=== PATIENT | male | born 1960 | race Caucasian/White ===

== ENCOUNTER → 2019-07-02 | Outpatient (CLI) | payer OTHER, SELFPAY | END | disposition home or self-care (01) | LOC: BFHLAB 10:21 | PROVIDERS: Family Provider Family Medicine; PCP Family Medicine; Visit Provider Family Medicine | DX: Z00.01 Encounter for general adult medical examination with abnormal findings (principal); I25.10 Atherosclerotic heart disease of native coronary artery without angina pectoris; Z12.5 Encounter for screening for malignant neoplasm of prostate | CPT/HCPCS: 36415 ==

== ENCOUNTER → 2019-07-15 | Outpatient (CLI) | payer MEDICAID, SELFPAY ==
--- NOTE | 2019-07-15 08:05 | CT_ITS ---
STUDY: LOW DOSE CT LUNG CANCER SCREENING REASON FOR EXAM: Male, 58 years old. Current smoker. 40 pack-year history. Prior three-vessel CABG procedure. RADIATION DOSAGE (If Supplied By Facility): CTDIvol = ( 3.40 ) mGy, DLP = ( 114.86 ) mGycm TECHNIQUE: No contrast was administered. Low dose technique was utilized (average mAS-38 and kVp 120). 1.25 mm axial source images with a slice interval of 1.25-mm were reconstructed in lung windows. 2.5 mm axial source images with a slice interval of 2.5-mm were reconstructed in lung windows. 5.0 mm axial source images with a slice interval of 5.0-mm were reconstructed in soft tissue windows. Nodule measured using lung windows on PACS and/or independent workstation with automated measurement of minimum and maximum diameter. Nodule measurement reported as average diameter rounded to the nearest whole number. Growth is defined as an increase ins size of greater than 1.5 mm. COMPARISON: None. NODULES: Total lung nodules (excluding granulomas): 0 Emphysema: There are mild emphysematous changes of the lungs. There is linear scarring in the lingula and anterior right upper lobe. Endobronchial lesion: None Aorta: Normal Coronary arteries: There is evidence of prior CABG procedure. Heart: Normal Pulmonary artery: Normal Mediastinal nodes: None Other chest and abdominal findings: Mild degenerative changes of the thoracic spine. CT/Low Dose CT Lung Screening IMPRESSION: Lung-RADS category 1 - Continue annual screening with LDCT in 12 months. IMPORTANT NOTES FOR USE: ACR Lung-RADS Version 1.0 Assessment Categories Release Date: March 08, 2014 Category: Coded 0-4 bases on nodule(s) with highest degree of suspicion. Negative screen is defined as categories 1 and 2; a positive screen is defined as categories 3 and 4. Category 3 and 4A nodules that are unchanged on interval CT should be coded as category 2, and individuals returned to screening in 12 months. Category 4X: Category 3 or 4 nodules with additional imaging findings that increase the suspicion of lung cancer, such as spiculation, GGN that doubles in size in 1 year, enlarged lymph notes, etc. Category Modifiers: S (significant finding unrelated to lung cancer) and C (prior history of treated lung cancer) may be added to the 0-4 Lung-RADS Electronically Signed: Sergio Bravo DO at 16:49 EDT Tel [phone], Service support ,
== END | disposition home or self-care (01) ==
LOC: CT 08:01
PROVIDERS: Family Provider Family Medicine; PCP Family Medicine; Referring Provider Family Medicine; Visit Provider Family Medicine
DX: F17.200 Nicotine dependence, unspecified, uncomplicated (principal); Z12.2 Encounter for screening for malignant neoplasm of respiratory organs
CPT/HCPCS: G0297

== ENCOUNTER → 2023-07-09 | Outpatient (CLI) | payer MEDICARE, SELFPAY ==
[2023-07-09 12:16] LABS: Absolute Lymphocyte Count 1.37 X10^3/uL (0.83-4.51); Absolute Neutrophil Count 3.2 X10^3/uL (2.0-7.7); Basophil# 0.06 X10^3/uL; Basophil% 1.1 % (0-1); Eosinophils% 3.7 % (0-5); Hematocrit 48.8 % (40-54); Hemoglobin 15.8 g/dL (13.0-16.5); Lymphocyte # 1.37 X10^3/ul (0.83-4.51); Lymphocyte % 25.5 % (19-41); Mean Corp Hgb Conc 32.4 g/dL (32-36); Mean Corpuscular Hgb 30.7 pg (27.0-32.0); Mean Corpuscular Volume 94.9 fL (80-94); Mean Platelet Vol. 10.4 fl (6.2-12.0); Monocyte# 0.48 X10^3/uL; Monocyte% 8.9 % (0-10); NRBC Flagged by Analyzer 0 % (0-5); Neutrophil # 3.24 X10^3/uL (2.7-7.7); Neutrophil % 60.4 % (47-70); Platelet Count 285 K/mm3 (150-450); RBC Distribution Width CV 13.2 % (11.6-14.6); RBC Distribution Width SD 46.9 fl (35.1-43.9); Red Blood Count 5.14 M/mm3 (4.6-6.2); White Blood Count 5.4 K/mm3 (4.4-11.0)
[2023-07-09 12:24] LABS: AST(SGOT) 12 U/L (15-37); Alanine Aminotransfer ALT/SGPT 19 U/L (16-61); Albumin, Serum 3.7 g/dL (3.2-5.0); Alkaline Phosphatase 81 U/L (45-117); Anion Gap 3 (5-15); BUN 8 mg/dL (7-18); Calcium,Total 9.1 mg/dL (8.5-10.1); Chloride 107 mmol/L (98-107); Cholesterol 219 mg/dL (200); EST Glomerular Filtration Rate 80 mL/min (>60); Est Glom Filt Rate - Afr Amer 97 mL/min (>60); Globulin 3.6 g/dL (2.2-4.2); Glucose 107 mg/dL (74-106); High Density Lipoprotein 34 mg/dL; PSA,Total - Annual Screen 2.01 ng/mL (0.00-4.00); Potassium 4.3 mmol/L (3.5-5.1); Protein, Total 7.3 g/dL (6.4-8.2); Sodium Level 140 mmol/L (136-145); Triglycerides 204 mg/dL; Very Low Density Lipoprotein 41 mg/dL (5-40)
== END | disposition home or self-care (01) ==
LOC: BFHLAB 09:23
PROVIDERS: PCP Family Medicine; Referring Provider Family Medicine; Visit Provider Family Medicine
DX: Z00.00 Encounter for general adult medical examination without abnormal findings (principal); I25.10 Atherosclerotic heart disease of native coronary artery without angina pectoris; Z12.5 Encounter for screening for malignant neoplasm of prostate
CPT/HCPCS: 36415; 80053; 80061; 84153; 85025; G0103

== ENCOUNTER → 2023-07-29 | Outpatient (CLI) | payer MEDICARE, SELFPAY ==
--- NOTE | 2023-07-29 14:15 | CT_ITS ---
STUDY: LOW DOSE CT LUNG CANCER SCREENING REASON FOR EXAM: Male, 62 years old. NICOTINE DEP. The patient smoked 1 pack per day for 45 years. RADIATION DOSAGE (If Supplied By Facility): CTDIvol = ( 4.02 ) mGy, DLP = ( 142.95 ) mGycm TECHNIQUE: No contrast was administered. Low dose technique was utilized (average mAS-38 and kVp 120). 1.25 mm axial source images with a slice interval of 1.25-mm were reconstructed in lung windows. 2.5 mm axial source images with a slice interval of 2.5-mm were reconstructed in lung windows. 5.0 mm axial source images with a slice interval of 5.0-mm were reconstructed in soft tissue windows. COMPARISON: Comparison is made with prior study dated July 15, 2019. NODULES: No suspicious nodules are seen. Emphysema: Hyperinflation. Emphysematous changes worse in the upper lobes. Linear scarring in the anterior aspects of both the right and left upper lobes. This evidence of a mild atelectasis and bronchiectasis in the medial aspect of the right middle lobe as well as the medial aspect of the lingular segment of the left upper lobe. Endobronchial lesion: None Aorta: Minimal atherosclerotic plaque formation of the aortic arch. CORONARY ARTERIES: Coronary artery calcification is seen. Prior CABG. Heart: Unremarkable. Pulmonary artery: Unremarkable. Mediastinal nodes: Unremarkable. Other chest and abdominal findings: CT/Low Dose CT Lung Screening IMPRESSION: Lung-RADS category 2 - Continue annual screening with LDCT in 12 months. IMPORTANT NOTES FOR USE: ACR Lung-RADS Version 1.1 Assessment Categories Release Date: 2018 Category: Coded 0-4 bases on nodule(s) with highest degree of suspicion. Negative screen is defined as categories 1 and 2; a positive screen is defined as categories 3 and 4. Category 3 and 4A nodules that are unchanged on interval CT should be coded as category 2, and individuals returned to screening in 12 months. Category 4X: Category 3 or 4 nodules with additional imaging findings that increase the suspicion of lung cancer, such as spiculation, GGN that doubles in size in 1 year, enlarged lymph notes, etc. Category Modifiers: S (significant finding unrelated to lung cancer) Electronically Signed: Zach Phillips MD at 9:50 EDT ,
== END | disposition home or self-care (01) ==
LOC: CT 14:13
PROVIDERS: PCP Family Medicine; Referring Provider Family Medicine; Visit Provider Family Medicine
DX: Z12.2 Encounter for screening for malignant neoplasm of respiratory organs (principal); Z87.891 Personal history of nicotine dependence
CPT/HCPCS: 71271

== ENCOUNTER 2024-08-26 09:02 | Outpatient (CLI) | payer MEDICARE, SELFPAY ==
[2024-08-26 09:29] LABS: Absolute Lymphocyte Count 1.22 X10^3/uL (0.83-4.51); Absolute Neutrophil Count 3.7 X10^3/uL (2.0-7.7); Basophil# 0.07 X10^3/uL; Basophil% 1.2 % (0-1); Eosinophil# 0.15 X10^3/uL; Eosinophils% 2.6 % (0-5); Hemoglobin 16.5 g/dL (13.0-16.5); Lymphocyte # 1.22 X10^3/ul (0.83-4.51); Lymphocyte % 21.1 % (19-41); Mean Corp Hgb Conc 33.7 g/dL (32-36); Mean Platelet Vol. 10.2 fl (6.2-12.0); Monocyte# 0.62 X10^3/uL; Monocyte% 10.7 % (0-10); NRBC Flagged by Analyzer 0 % (0-5); Neutrophil # 3.68 X10^3/uL (2.7-7.7); Neutrophil % 63.9 % (47-70); Platelet Count 247 K/mm3 (150-450); RBC Distribution Width SD 45.9 fl (35.1-43.9); Red Blood Count 5.16 M/mm3 (4.6-6.2); White Blood Count 5.8 K/mm3 (4.4-11.0)
--- OUTSIDE RECORDS SUMMARY | 2024-08-26 09:43 | XMS RPT_ITS | CCD ---
Author Organization [facility] Care Team Providers Care Food Assembler [employer] Name Role Phone Dejah Cortesily Veronica Admitting Unavailable Dejah Cortesily Veronica Attending Unavailable No Doctor Assigned, Nodr Primary Care Unavail able LUIS FERNANDO BOYD Admitting Unavailable LUIS FERNANDO BOYD Attending Unavailable LUIS FERNANDO BOYD Primary Care Unavailable HAZEL GONZALES Consulting Unavailable HAZEL GONZALES Referring Unavailable PROVIDER, UNKNOWN Consulting Unavailable PROVIDER, UNKNOWN Consulting Unavailable FCO HAYS DO Admitting Unavailable FCO HAYS DO Attending Unavailable FCO HAYS DO Primary Care Unavailable HAZEL GONZALES Consulting Unavailable HAZEL GONZALES Referring Unavailable PROVIDER, UNKNOWN Consulting Unavailable PROVIDER, UNKNOWN Consulting Unavailable FCO HAYS DO Admitting Unavailable FCO HAYS DO Attending Unavailable FCO HAYS DO Primary Care Unavailable HAZEL GONZALES Consulting Unavailable PROVIDER, UNKNOWN Consulting Unavailable PROVIDER, UNKNOWN Consulting Unavailable ROYAL DO~[id number], ROYALLILO MCCARTHYNT J Attending Unavailable ROYAL DO~[id number], ROYAL BOB J Admitting Unavailable ANSELMO MACE~[id number], ANSELMO [place] Primary Ca re Unavailable HAZEL GONZALES MD Consulting Unavailable HAZEL GONZALES MD Consulting Unavailable ROYAL DO BOB J Consulting Unavailable ROYAL DO, BOB J Consulting Unavailable RAYMOND DO, CATHIE T Consulting Unavailable RAYMOND DO, CATHIE T Consulting Unavailable Allergies Allergy Classification Reported Allergen(s) Allergy Type Date of Onset Reaction(s) Facility (1 source) No Known Medication Allergies; Translations: [No Known Medication Allergies] Propensity to adverse reactions to drug (disorder) [facility] Repository (1 source) clorazepate Drug Allergy [facility] Repository (1 source) Chloramphenicol Drug Allergy [facility] Repository (1 source) Milk; Translations: [Milk] Food allergy (disorder) [facility] Repository (1 source) MISC-DRUG Drug allergy (disorder) [facility] Repository Problems Problem Classification Problem Date Documented Date Episodic/Chronic Other connective tissue disease (1 source) Radial styloid tenosynovitis [de Quervain]; Translations: [RADIAL STYLOID TENOSYNOVITIS] Onset: 04-03-2024 Episodic Other non-traumatic joint disorders (2 sources) Pain in left wrist; Translations: [PAIN IN LEFT WRIST] Onset: 04-01-2024 Episodic Results Test Name Value Interpretation Reference Range Facil ity HAND LEFT COMPLETEon 024 HAND LEFT COMPLETE EXAM: HAND LEFT COMPLETE, WRIST LEFT COMPLETE REASON FOR EXAM: Pain of left wrist COMPARISON: None TECHNIQUE: 3 views of the left hand and 3 views of the left wrist FINDINGS: Severe osteoarthrosis of the first carpometacarpal joint, moderate of the triscaphe articulation. Mild degenerative changes of the first interphalangeal and second through fifth distal interphalangeal joints. No fractures. No aggressive osseous lesions or bony demineralization. Mild dorsal wrist soft tissue swelling. IMPRESSION: No acute osseous abnormality. Degenerative changes throughout the left hand and wrist, most severe at the first carpometacarpal joint. Normal [facility] WRIST LEFT COMPLETEon 2023 WRIST LEFT COMPLETE EXAM: HAND LEFT COMPLETE, WRIST LEFT COMPLETE REASON FOR EXAM: Pain of left wrist COMPARISON: None TECHNIQUE: 3 views of the left hand and 3 views of the left wrist FINDINGS: Severe osteoarthrosis of the first carpometacarpal joint, moderate of the triscaphe articulation. Mild degenerative changes of the first interphalangeal and second through fifth distal interphalangeal joints. No fractures. No aggressive osseous lesions or bony demineralization. Mild dorsal wrist soft tissue swelling. IMPRESSION: No acute osseous abnormality. Degenerative changes throughout the left hand and wrist, most severe at the first carpometacarpal joint. Normal [facility] EMERGENCY REPORTon 9 EMERGENCY REPORT [facility] EMERGENCY ROOM REPORT NAME ACCOUNT SEX AGE ADMIT DISCHARGE PT MED. RECORD# NUMBER DATE DATE TYPE DOUGLAS [id number] M 58 10/11/19 10/11/19 3 MEG Minh [address] ROOM: ER DATE OF : 1960 DICTATING PHYSICIAN: Fco Hays ADDENDUM DIAGNOSTIC DATA: CT scan of the abdomen and pelvis did show the gallbladder to be grossly distended and contains dependent gallstones. There is a borderline prominent biliary tree, cannot exclude an occult choledocholithiasis. It could be further characterized with MRCP. There is scattered atelectasis/scarring at the lung bases and postoperative changes in the chest with sternotomy. There is a somewhat elevated right hemidiaphragm and a tortuous, mildly aneurysmal aorta measuring approximately 3.7 cm. There is a mild fatty lobulated liver, cannot exclude a cirrhotic morphology. No obstructive uropathy. There are renal cysts, some too small to characterize. There is mild urinary bladder wall thickening which could be related to under-distention. Appendix is visualized and appears unremarkable. No evidence of acute appendicitis. There is a moderate amount of gas and stool within the proximal to mid-colon. There is scattered mild bowel wall thickening, typically under-distention. No bowel obstruction or free air. Bloodwork showed a white count of 8, hemoglobin 15.7, hematocrit 46.8, and platelet count 257,000. Lipase was 17. Troponin was less than 0.01. Sodium was 137, potassium 3.6, chloride 103, CO2 of 26.5, BUN 14, creatinine 1, and glucose 119. AST was mildly elevated at 200, ALT mildly elevated at 117, alkaline phosphatase 88, and total bilirubin 1.3. Anion gap was 11. Urinalysis showed negative nitrites and negative leukocyte esterase; microscopic not indicated. EMERGENCY DEPARTMENT COURSE AND TREATMENT: I discussed the case with the patient. We decided to place him on Percocet and advised him to keep a bland diet and to follow up with Dr. Gaines in the office this coming week. I did ask him to call Dr. Gaines's office first thing Saturday to arrange follow-up. He was advised to stay away from fatty foods and spicy foods and stick with a bland diet. The patient was also placed on Flagyl 500 mg one p.o. t.i.d., dispense #30 with no refill, and Cipro 500 mg one p.o. b.i.d., dispense #20 with no refill. If the patient's symptoms become worse or any other problems develop, return here to the Emergency Department. DIAGNOSES: Page 1 of 2 MEG COLE Emergency Room Report MEG COLE : 1960 1. Cholelithiasis. 2. Abdominal pain. Dictated By: Fco Hays DO 10/11/19 03:16 JOB #: [id number] Transcribed By: marisela 10/12/19 06:44 Electronically signed by: E-Sign: Dr. Fco Hays D.O. 10/21/19 04:46 Page 2 of 2 MEG COLE Emergency Room Report Normal [facility] EMERGENCY REPORT [facility] EMERGENCY ROOM REPORT NAME ACCOUNT SEX AGE ADMIT DISCHARGE PT MED. RECORD# NUMBER DATE DATE TYPE DOUGLAS [id number] Driss 58 10/11/19 10/11/19 3 MEG Wilkinson [address] ROOM: ER DATE OF : 1960 DICTATING PHYSICIAN: Fco Hays ADDENDUM DIAGNOSTIC DATA: EKG was done at 0051 hours. It showed a normal sinus rhythm with some inverted T waves in V4 through V6 as well as I and aVL. His previous EKGs have shown similar findings. The patient did have a stress test by his compensator in his compensator's office this year, which was negative. Dictated By: Fco Hays DO 10/11/19 03:35 JOB #: [id number] Transcribed By: marisela 10/12/19 08:41 Electronically signed by: E-Sign: Dr. Fco Hays D.O. 10/21/19 04:46 Page 1 of 1 MEG COLE Emergency Room Report Normal [facility] EMERGENCY REPORT [facility] EMERGENCY ROOM REPORT NAME ACCOUNT SEX AGE ADMIT DISCHARGE PT MED. RECORD# NUMBER DATE DATE TYPE DOUGLAS [id number] Driss 58 10/11/19 10/11/19 3 MEG Wilkinson [address] ROOM: ER DATE OF : 1960 DICTATING PHYSICIAN: Fco Hays TIME SEEN: 0010 hours. HISTORY OF PRESENT ILLNESS: This is a 58-year-old white male complaining of epigastric region abdominal pain that started suddenly around 5 p.m. The pain was severe and doubled him over in pain. He took a Tums, which made him dry heave, but then the pain went away for awhile. He started to have some pain again a little bit later and took some Tums, but that really did not seem to help that time. The pain eventually started to go away and then the pain came back a third time, and it was really bad that time the patient states. He states he had a similar pain about a month ago, but it went away on its own and he never really saw anyone about it. The pain tonight just will not let up. He has complained of some shortness of breath when he is having this severe pain, although he states this does not feel like his cardiac pain. Dr. Gonzales is his primary care provider. PAST MEDICAL HISTORY: The patient has a past medical history of fibromyalgia, osteoarthritis, and coronary artery disease. PAST SURGICAL HISTORY: Past surgeries include a previous coronary artery bypass graft surgery in 2004. He has also had right knee surgery twice. ALLERGIES: He is allergic to Chloromycetin. SOCIAL HISTORY: He is a smoker of one pack per day. He denies any use of alcohol or illicit drugs. He lives with family. REVIEW OF SYSTEMS: He denies any chest pain. He does admit to some intermittent shortness of breath. He denies any cough, sputum, or wheezing. He does complain of epigastric abdominal pain with some associated nausea and vomiting. He denies any diarrhea, constipation, melena, or hematochezia. He denies any headache, numbness, unsteady gait, weakness, neck or back pain, joint pain, skin rash or swelling, hives, hay fever or swollen glands. Further review of systems is negative. PHYSICAL EXAMINATION: Vital signs: Blood pressure is 114/86, pulse 85, respirations 17, temperature 98.2, pulse oximetry 93%, and weight 245 pounds. Presently, the patient is alert and oriented x3. He appears in some mild distress secondary to epigastric abdominal pain, but he is pleasant and cooperative. HEENT: Page 1 of 2 MEG COLE Emergency Room Report MEG COLE : 1960 Head appears atraumatic. Pupils are equal and reactive to light. Red reflexes are intact bilaterally. Extraocular muscles are intact. No conjunctival injection. No scleral icterus or lid edema. Ears: TMs are intact bilaterally. No erythema noted. No external auditory canal edema or bleeding. Nose exhibits no rhinorrhea or epistaxis. Mouth: Mucous membranes are moist. No pharyngeal erythema. Uvula is midline and elevates. Neck is supple. Trachea is midline. No JVD or lymphadenopathy. No posterior cervical tenderness. No nuchal rigidity. Lungs are clear to auscultation bilaterally. No adventitious sounds are noted. No accessory muscle use is noted. CV: Heart rate and rhythm are regular without murmur. Abdomen is soft with some mild epigastric tenderness on palpation. Bowel sounds are present x4 quadrants and normoactive. No guarding or rigidity. No rebound. No palpable abdominal masses. No hepatosplenomegaly. Back exhibits no midline or paraspinal region tenderness. No increased paraspinal muscle rigidity. Negative Rodney's sign. Extremities: No edema or cyanosis. Peripheral pulses are intact. No motor or sensory deficits are noted. Hand cone marker are strong and symmetric. Skin is warm and dry. No diaphoresis or rash. EMERGENCY DEPARTMENT COURSE AND TREATMENT: Presently, we will get a CT scan of the abdomen/pelvis along with some screening bloodwork. We will do an EKG and a troponin as well and get a urinalysis and then reevaluate. Dictated By: Fco Hays DO 10/11/19 00:36 JOB #: [id number] Transcribed By: marisela 10/12/19 06:08 Electronically signed by: E-Sign: Dr. Fco Hays D.O. 10/21/19 04:46 Page 2 of 2 DOUGLASMEG Emergency Room Report Normal [facility] EMERGENCY REPORT [facility] EMERGENCY ROOM REPORT NAME ACCOUNT SEX AGE ADMIT DISCHARGE PT MED. RECORD# NUMBER DATE DATE TYPE DOUGLAS [id number] M 58 10/11/19 10/11/19 3 MEG Wilkinson [address] ROOM: ER DATE OF : 1960 DICTATING PHYSICIAN: Fco Hays ADDENDUM EMERGENCY DEPARTMENT COURSE AND TREATMENT: I did discuss the case with Dr. Gaines from the General Surgery service. He recommended placing the patient on something for pain and to have him follow up in the office this coming week. He did ask for the patient to call his office first thing Saturday morning to arrange this. I did recommend a bland diet. I also felt if he was rather tender it would be a good idea to start him on antibiotics. He would also like the patient to have an outpatient gallbladder ultrasound, so I have ordered that. I placed the patient on Cipro 500 mg one p.o. b.i.d., dispense #20 with no refill, and Flagyl 500 mg one p.o. every 8 hours, dispense #30 with no refill. I discussed with the patient to call the office on Saturday to arrange follow-up in the office with Dr. Gaines this week and to get the gallbladder ultrasound done as an outpatient as scheduled. If his symptoms become worse, return here to the Emergency Department. Dictated By: Fco Hays DO 10/11/19 03:34 JOB #: [id number] Transcribed By: marisela 10/12/19 07:04 Electronically signed by: E-Sign: Dr. Fco Hays D.O. 10/21/19 04:46 Page 1 of 1 MEG COLE Emergency Room Report Normal [facility] CBC + DIFFon 10-11-2019 BANDS 1 % Normal 0 - 5 [facility] Comment on above: Performed By: #### 2 57719 #### [address] [address] CELL COUNT [address] [facility] Comment on above: Performed By: #### 2 93575 #### [facility],[address] [place] [address] 13404 EO 1.0 % Normal 0.0 - 4.0 [facility] Comment on above: Performed By: #### 2 64335 #### [facility],[address] [place] [address] 95196 MONOS 7 % Normal 0 - 8 [facility] Comment on above: Performed By: #### 2 86662 #### [facility],[address] [place] [address]776 SEGS 73 % High 50 - 70 [facility] Comment on above: Performed By: #### 2 44688 #### [address] [address] Basophils/100 WBC (Bld) 1.0 % Normal 0.0 - 2.0 [facility] Comment on above: Performed By: #### 2 38543 #### [facility],[address] [place] [address] CBC + DIFF Normal [facility] Comment on above: Result Comment: CBC- COMPLETE BLOOD COUNT Performed By: #### 2 51705 #### [facility],[address] [place] [address] Erythrocyte distribution width (RBC) [Ratio] 13.8 % Normal 12.0 - 15.6 [facility] Comment on above: Performed By: #### 2 33456 #### [facility],[address] [place] [address] Hematocrit (Bld) [Volume fraction] 46.8 % Normal 40.0 - 52.0 [facility] Comment on above: Performed By: #### 2 82135 #### [facility],[address] [place] [address] Hemoglobin (Bld) [Mass/Vol] 15.7 g/dL Normal 13.0 - 17.5 [facility] Comment on above: Performed By: #### 2 81643 #### [facility],[address] [place] [address] Lymphocytes/100 WBC (Bld) 17 % Low 20 - 40 [facility] Comment on above: Performed By: #### 2 96655 #### [facility],[address] [place] [address] MANUAL DIFF SEE BELOW Normal [facility] Comment on above: Performed By: #### 2 84807 #### [facility],[address] [place], [place] [id number] MCH (RBC) [Entitic mass] 32 pg Normal 27 - 33 [facility] Comment on above: Performed By: #### 2 01742 #### [facility],[address] [place], [place] [id number] MCHC (RBC) [Mass/Vol] 34 X10 3 Normal 32 - 36 [facility] Comment on above: Performed By: #### 2 57167 #### [facility],[address] [place] [address]383 MCV (RBC) [Entitic vol] 95 fL Normal 81 - 98 [facility] Comment on above: Performed By: #### 2 60094 #### [facility],[address] [place] [address] 94179 Morphology Kota (Bld) [Interp] REVIEWED Normal [facility] Comment on above: Performed By: #### 2 51605 #### [facility],[address] [place] [address] 60616 Platelet mean volume (Bld) [Entitic vol] 9.1 fL Normal 6.4 - 10.5 [facility] Comment on above: Result Comment: AUTO MATED DIFFERENTIAL Performed By: #### 2 27676 #### [address] [address] Platelets (Bld) [#/Vol] 257 x10EE3/UL Normal 150 - 450 [facility] Comment on above: Performed By: #### 2 96164 #### [facility],[address] [place] [address] 83155 RBC (Bld) [#/Vol] 4.94 x 10EE6/UL Normal 4.50 - 6.00 [facility] Comment on above: Performed By: #### 2 18239 #### [facility],[address] [place] [address] 15782 WBC (Bld) [#/Vol] 8.0 x 10EE3/UL Normal 4.5 - 10.8 [facility] Comment on above: Performed By: #### 2 68835 #### [facility],[address] [place] [address] 23914 CMP with eGFRon 10-11-2019 Age - Reported 58 years Normal [facility] Comment on above: Performed By: #### 2 24342 #### [facility],[address] [place] [address] 58033 Albumin [Mass/Vol] 4.6 g/dL Normal 3.4 - 4.[address] [facility] Comment on above: Performed By: #### 2 28055 #### [facility],[address] [place] [address] 63955 Albumin/Globulin [Mass ratio] 1.6 {ratio} Normal 0.9 - 1.6 [facility] Comment on above: Performed By: #### 2 38099 #### [facility],[address] [place] [address] 99161 ALK PHOS 88 U/L Normal 38 - 126 [facility] Comment on above: Performed By: #### 2 87880 #### [facility],[address] [place] [address] 75913 ALT/SGPT 117 U/L High 10 - 40 [facility] Comment on above: Performed By: #### 2 77960 #### [facility],[address] [place] [address] 76861 Anion gap [Moles/Vol] 11 mmol/L Normal 10 - 20 [facility] Comment on above: Performed By: #### 2 89874 #### [facility],[address] [place] [address] 86857 AST/SGOT 200 U/L High 13 - 39 [facility] Comment on above: Performed By: #### 2 95158 #### [facility],[address] [place] [address] 47703 B/C RATIO 14 ratio Normal 0 - 30 [facility] Comment on above: Performed By: #### 2 63166 #### [facility],[address] [place] [address] 96128 Bilirubin [Mass/Vol] 1.3 mg/dL Normal 0.0 - 1.5 [facility] Comment on above: Performed By: #### 2 00819 #### [facility],[address] [place] [address] 90950 Calcium [Mass/Vol] 10.4 mg/dL High 8.6 - 10.[address] [facility] Comment on above: Performed By: #### 2 14829 #### [facility],[address] [place] [address] 87536 Chloride [Moles/Vol] 103 mmol/L Normal 98 - 107 [facility] Comment on above: Performed By: #### 2 02658 #### [facility],[address] [place] [address] 89393 CO2 [Moles/Vol] 26.5 mmol/L Normal 21.0 - 31.0 [facility] Comment on above: Performed By: #### 2 03305 #### [facility],[address] [place] [address] 93062 Creatinine [Mass/Vol] 1.0 mg/dL Normal 0.7 - 1.3 [facility] Comment on above: Performed By: #### 2 55094 #### [facility],[address] [place] [address] 86425 GFR/1.73 sq M predicted among non-blacks MDRD (S/P/Bld) [Vol rate/Area] mL/min/{1.73_m2} Normal 60 - 999 [facility] Comment on above: Result Comment: ACCO RDING TO THE NATIONAL KIDNEY DISEASE EDUCATION PROGRAM(NKDE), A NORMAL eGFR IS A VALUE GREATER THAN OR EQUAL TO 60 ML/MIN/1.73 SQ METERS. CHRONIC KIDNEY DISEASE: <60mL/MIN/1.73 SQ METERS KIDNEY FAILURE: <15mL/MIN/1.73 SQ METERS THIS TEST SHOULD ONLY BE USED FOR PATIENTS 18 YEARS OF AGE AND OLDER. Performed By: #### 2 78813 #### [facility],[address] [place] [address] 08604 GFR/1.73 sq M predicted among non-blacks MDRD (S/P/Bld) [Vol rate/Area] Normal [facility] Comment on above: Result Comment: COMP REHENSIVE METABOLIC PANEL Performed By: #### 2 25662 #### [facility],[address] [place] [address] 26386 Globulin (S) [Mass/Vol] 2.9 g/dL Normal 1.5 - 3.8 [facility] Comment on above: Performed By: #### 2 51750 #### [facility],[address] [place] [address] 50727 Glucose [Mass/Vol] 119 mg/dL High 74 - [address] [facility] Comment on above: Performed By: #### 2 09793 #### [facility],[address] [place] [address] 65443 Potassium [Moles/Vol] 3.6 mmol/L Normal 3.5 - 5.1 [facility] Comment on above: Performed By: #### 2 40198 #### [facility],[address] [place] [address] 71732 Protein [Mass/Vol] 7.5 g/dL Normal 6.4 - 8.[address] [facility] Comment on above: Performed By: #### 2 93372 #### [facility],[address] [place] [address] 31891 Sodium [Moles/Vol] 137 mmol/L Normal 136 - [address] [facility] Comment on above: Performed By: #### 2 20986 #### [facility],[address] [place] [address] 70776 Urea nitrogen [Mass/Vol] 14 mg/dL Normal 6 - 20 [facility] Comment on above: Performed By: #### 2 09276 #### [facility],[address] [place] [address] ABDOMEN/PELVIS [facility] 2018 CT ABDOMEN/PELVIS [place] [address] Patient: MEG COLE Phone#: : 1960 Age: 58 Gender: M Pt. Type: ER Account: [id number] Location: 052 Ordering: FCO HAYS Exam Date: 10/11/2019/1:30 Family Phys: HAZEL GONZALES Charge Code: [id number] Physician: [place] Order #: [id number] DLP Dose#: 33.6 mGy PROCEDURE: CT ABDOMEN/PELVIS WITH CONTRAST COMPARISON: None. INDICATIONS: Abdominal Pain. TECHNIQUE: After obtaining the patient's consent, CT images were created with non-ionic intravenous contrast material. All CT scans at this facility use dose modulation, iterative reconstruction, and/or weight based dosing when appropriate to reduce radiation dose to as low as reasonably achievable. IV CONTRAST: Omnipaque 350,80ml TOTAL DOSE: 33.6 CTDIvol(mGy) FINDINGS: LIVER: Fatty changes of the liver are present. No enlargement, atrophy, abnormal density, or significant focal lesion. BILIARY: Multiple small calculi/gravel are present in the dependent aspect of the gallbladder. There is no evidence of biliary dilatation. The gallbladder is mildly distended. PANCREAS: Normal. No lesion, fluid collection, ductal dilatation, or atrophy. SPLEEN: Normal. No enlargement or focal lesion. KIDNEYS: Normal. No mass, obstruction, or calcification. ADRENALS: Normal. No mass or enlargement. AORTA/VASCULAR: Aorta is ectatic. RETROPERITONEUM: Normal. No mass or adenopathy. BOWEL/MESENTERY: Normal. No visible mass, obstruction, or bowel wall thickening. ABDOMINAL WALL: Small periumbilical hernia with fat. URINARY BLADDER: Normal. No visible focal wall thickening, lesion, or calculus. Continued Report - Page 2 of 2 Patient: MEG COLE Phone#: : 1960 Age: 58 Gender: M Pt. Type: Account: [id number] Location: 052 Ordering: FCO HAYS Exam Date: 10/11/2019/1:30 Family Phys: HAZEL MARTINSHAR Charge Code: [id number] Physician: [place] Order #: [id number] DLP Dose#: 33.6 mGy PELVIC NODES: Normal. No adenopathy. PELVIC ORGANS: Normal. No visible mass. Pelvic organs appropriate for patient age. BONES: Degenerative changes of the spine are present most marked at the L5-S1 level. LUNG BASES: Basal atelectasis is present. Groundglass density in the left lower lobe is present. OTHER: Negative. CONCLUSION: 1. Cholelithiasis. Cholecystitis cannot be excluded. 2. Degenerative changes of the spine are present. 3. Bibasilar atelectasis is present. Dictated by: Etelvina Leroy MD on 10/11/2019 at 23:31 Approved by: Etelvina Leroy MD on 10/11/2019 at 23:[address] [facility] LIPASEon 10-11-2019 Lipase [Catalytic activity/Vol] 17.0 U/L Low 18.0 - 51.0 [facility] Comment on above: Performed By: #### 2 31454 #### [place] [address] TROPONINon 10-11-2019 Troponin I.cardiac [Mass/Vol] ng/mL Normal 0.00 - 0.05 [facility] Comment on above: Result Comment: Elev ated troponin (above the 99th percentile) usually indicates myocardial ischemia. Results must be interpreted within the clinical setting. 1.Non-ischemic pathology can also cause elevated troponin levels (e.g., acute pulmonary embolism, myocarditis, pericarditis, heart failure, intracranial injury, rhabdomyolisis, sepsis, shock and renal insufficiency). 2.Approximately 1% of healthy adults have elevated troponin levels. 3.Analytical false positive results rarely occur(due to multiple interferences such as heterophile antibodies). Performed By: #### 2 50501 #### [facility],[address] [place] [address] URINALYSISon 10-11-2019 Bilirubin [Mass/Vol] Negative Normal NORMAL: NEGATIVE [facility] Comment on above: Performed By: #### 2 87581 #### [facility],[address] [place] [address] Blood Negative Normal NORMAL: NEGATIVE [facility] Comment on above: Performed By: #### 2 65134 #### [facility],[address] [place] [address] Clarity (U) very cloudy Normal NORMAL: CLEAR [facility] Comment on above: Performed By: #### 2 93827 #### [facility],[address] [place] [address] 62257 Color (U) albert Normal NORMAL: YELLOW [facility] Comment on above: Performed By: #### 2 87869 #### [facility],[address] [place] [address] 86524 Glucose [Mass/Vol] NORM Normal NORMAL: NORMAL [facility] Comment on above: Performed By: #### 2 80383 #### [facility],[address] [place], [place] [id number] Ketone Negative Normal NORMAL: NEGATIVE [facility] Comment on above: Performed By: #### 2 08666 #### [facility],[address] [place] [address] Microscopic NOT INDICATED Normal [facility] Comment on above: Performed By: #### 2 41876 #### [facility],[address] [place], [place] [id number] Nitrite Ql (U) Negative Normal NORMAL: NEGATIVE [facility] Comment on above: Performed By: #### 2 03739 #### [facility],[address] [place], [place] [id number] pH (Bld) 8 Normal NORMAL: 5.0-8.0 [facility] Comment on above: Performed By: #### 2 64887 #### [facility],[address] [place], [place] [phone] Protein (U) [Mass/Vol] Negative Normal NORMAL: NEGATIVE [facility] Comment on above: Performed By: #### 2 90453 #### [facility],[address] [place], [place] [id number] Sp [place] 1.020 Normal NORMAL: 1.010-1.030 [facility] Comment on above: Performed By: #### 2 19991 #### [facility],[address] [place] [address] Specimen type Nom (Spec) Clean catch Normal [facility] Comment on above: Performed By: #### 2 58900 #### [facility],[address] [place] [address] 29596 Urobilinog 1 Abnormal NORMAL: NORMAL [facility] Comment on above: Performed By: #### 2 47392 #### [facility],[address] [place] [address] 41372 WBC (Bld) [#/Vol] Negative Normal NORMAL: NEGATIVE [facility] Comment on above: Performed By: #### 2 92011 #### [facility],[address] [place] [address] 99698 US RUQ (GB/PANCREAS)on 10-11 US RUQ (GB/PANCREAS) [place] [address] Patient: MEG COLE Phone#: : 1960 Age: 58 Gender: M Pt. Type: Out Account: [id number] Location: [facility] Ordering: [facility] HAYS Exam Date: 10/11/2019/13:07 Family Phys: HAZEL GONZALES Charge Code: 883510 Physician: [place] Order #: [id number] DLP Dose#: PROCEDURE: RUQ (GB) ULTRASOUND COMPARISON: [facility], CT, ABDOMEN/PELVIS W CON, 10/11/2019, 1:30. INDICATIONS: Abdomen pain FINDINGS: LIVER: Normal. Normal size and echotexture. No significant masses. BILIARY: The gallbladder is filled with heterogeneous echogenic material, most likely mixture of small stones and sludge. Color-flow within the gallbladder is likely artifact from gallstones. The gallbladder wall measures 0.3 cm. The common bile duct measures 0.7 cm. PANCREAS: Visualized portion of the pancreas are unremarkable. RIGHT KIDNEY: Normal renal parenchymal echogenicity. No hydronephrosis. OTHER: Negative. CONCLUSION: 1. Gallbladder filled with heterogeneous echogenic material, most consistent with a mixture of sludge and gallstones. DICTATED BY: TEJINDER FLORES MD ON 10/11/2019 AT 20:52 APPROVED BY: TEJINDER FLORES MD ON 10/11/2019 AT 20:[address] [facility] EMERGENCY REPORTon 04-16-201 9 EMERGENCY REPORT [facility] EMERGENCY ROOM REPORT NAME ACCOUNT SEX AGE ADMIT DISCHARGE PT MED. RECORD# NUMBER DATE DATE RICK COLE [id number] Driss 58 02/21/19 02/21/19 3 MEG Wilkinson [address] ROOM: ER DATE OF : 1960 DICTATING PHYSICIAN: Luis Fernando Boyd CHIEF COMPLAINT: This is a 58-year-old male with a past medical history of coronary artery disease, fibromyalgia, and osteoarthritis who presents with concern for cough and weakness. HISTORY OF PRESENT ILLNESS: The patient states he has developed upper respiratory congestion with facial pressure over the past three to four days. He states that over the past one day he has had a cough, which has been productive of yellow/green sputum. He states he has been weak over this period of time and cannot shake this illness . He does deny any chest pain or shortness of breath or nausea or vomiting. He states that he did recently follow up with his compensator within the past one month and had a stress test, which was negative. The patient is a current smoker and does smoke approximately a half a pack per day. PAST MEDICAL HISTORY: Coronary artery disease, osteoarthritis, fibromyalgia. PAST SURGICAL HISTORY: CABG. SOCIAL HISTORY: Half a pack per day smoker for approximately 35 years. He denies any drugs or alcohol abuse. REVIEW OF SYSTEMS: Ten systems reviewed and otherwise negative unless stated above. PHYSICAL EXAMINATION: The patient appears well and nontoxic. Vital signs are within normal limits. Head is normocephalic without signs of trauma. Eyes: Extraocular motions are intact. PERRLA. Ears clear bilaterally. Nose with no evidence of significant drainage. Mouth is clear without any posterior thenar swelling. Neck: Trachea is midline. Supple. No cervical lymphadenopathy. Lungs are clear to auscultation bilaterally. There is no wheezing or rales. Heart S1, S2 appreciated without murmurs. Abdomen is soft and nontender. No hepatosplenomegaly. Musculoskeletal: +5/5 muscle strength in the upper and lower extremities. Neuro: Alert and oriented times three. Cranial nerves II through XII intact. Sensation to light touch intact. Skin: Well healed old midline chest scar. Otherwise normal. Psych: Mood and affect normal. DIAGNOSTIC DATA: Lab work reveals very mild hypokalemia 3.3, negative Troponin. Page 1 of 2 MEG COLE Emergency Room Report EKG was done and shows normal sinus rhythm with PACs and lateral T-wave inversions. This was compared to an EKG from 2006, which shows T-wave inversion in V4 but V5, V6, lead I, and aVL all have new small T-wave inversions without depression. A chest x-ray shows no kaur pneumonia. EMERGENCY DEPARTMENT COURSE AND TREATMENT: The patient appears well and nontoxic. His vital signs are within normal limits. His lungs are clear to auscultation without wheezing. Given the patient's concern for weakness, EKG was done which shows very mild T-wave inversions in the lateral leads, which are somewhat new to previous given his last EKG we have on record as 2005. Troponin is negative and his chest x-ray shows no kaur pneumonia. Otherwise lab work is fairly normal. I did discuss with the patient his new EKG changes. He did follow up with his compensator in the past one month and had a stress test which was normal. He has no chest pain or shortness of breath at this time. This really does seem to be infectious in etiology given his facial congestion and cough, which has been productive of yellow/green sputum. For this reason, the patient will be given prednisone and doxycycline. The first dose was given in the emergency department. I will also give him 20 mEq of potassium. He was advised that he may need to follow up with his doctor for regular potassium. He is also advised to follow up with his PCP within the next two days to have a recheck or to return to the emergency department if he is not clearing this congestion. I did also advise him to return if he has any chest pain, shortness of breath, nausea, vomiting, or diaphoresis. Both him and his are agreeable to this plan. DIAGNOSIS: 1. Bronchitis. 2. Hypokalemia. 3. EKG abnormalities. PLAN/DISPOSITION: He was discharged home in stable condition. Dictated By: Luis Fernando Boyd DO 02/21/19 23:26 JOB #: [id number] Transcribed By: 02/22/19 09:15 Electronically signed by: E-SIGN: Luis Fernando Boyd D.O. 02/24/19 20:00 Page 2 of 2 MEG COLE Emergency Room Report Normal [facility] CMP with eGFRon 02-22-2019 Age - Reported 58 years Normal [facility] Comment on above: Performed By: #### 2 62514 #### [facility],[address] [place] [address] 08160 Albumin [Mass/Vol] 4.3 g/dL Normal 3.4 - 4.[address] [facility] Comment on above: Performed By: #### 2 21575 #### [facility],[address] [place] [address] 39661 Albumin/Globulin [Mass ratio] 1.6 {ratio} Normal 0.9 - 1.6 [facility] Comment on above: Performed By: #### 2 45222 #### [facility],[address] [place] [address] 14155 ALK PHOS 62 U/L Normal 38 - 126 [facility] Comment on above: Performed By: #### 2 21845 #### [facility],[address] [place] [address] 09088 ALT/SGPT 10 U/L Normal 10 - 40 [facility] Comment on above: Performed By: #### 2 26313 #### [facility],[address] [place] [address] 65049 Anion gap [Moles/Vol] 11 mmol/L Normal 10 - 20 [facility] Comment on above: Performed By: #### 2 45896 #### [facility],[address] [place] [address] 45237 AST/SGOT 10 U/L Low 13 - 39 [facility] Comment on above: Performed By: #### 2 26193 #### [facility],[address] [place] [address] 90279 B/C RATIO 11 ratio Normal 0 - 30 [facility] Comment on above: Performed By: #### 2 74922 #### [facility],[address] [place] [address] 32903 Bilirubin [Mass/Vol] 0.5 mg/dL Normal 0.0 - 1.5 [facility] Comment on above: Performed By: #### 2 72265 #### [facility],[address] [place] [address] 85442 Calcium [Mass/Vol] 9.3 mg/dL Normal 8.6 - 10.[address] [facility] Comment on above: Performed By: #### 2 98232 #### [facility],[address] [place] [address] 44893 Chloride [Moles/Vol] 103 mmol/L Normal 98 - 107 [facility] Comment on above: Performed By: #### 2 55828 #### [facility],[address] [place] [address] 74519 CO2 [Moles/Vol] 27.6 mmol/L Normal 21.0 - 31.0 [facility] Comment on above: Performed By: #### 2 61655 #### [facility],[address] [place] [address] 55689 Creatinine [Mass/Vol] 0.9 mg/dL Normal 0.7 - 1.3 [facility] Comment on above: Performed By: #### 2 07129 #### [facility],[address] [place] [address] 75316 GFR/1.73 sq M predicted among non-blacks MDRD (S/P/Bld) [Vol rate/Area] mL/min/{1.73_m2} Normal 60 - 999 [facility] Comment on above: Performed By: #### 2 19228 #### [facility],[address] [place] [address] 84913 Result Comment: ACCO RDING TO THE NATIONAL KIDNEY DISEASE EDUCATION PROGRAM(NKDE), A NORMAL eGFR IS A VALUE GREATER THAN OR EQUAL TO 60 ML/MIN/1.73 SQ METERS. CHRONIC KIDNEY DISEASE: <60mL/MIN/1.73 SQ METERS KIDNEY FAILURE: <15mL/MIN/1.73 SQ METERS THIS TEST SHOULD ONLY BE USED FOR PATIENTS 18 YEARS OF AGE AND OLDER. GFR/1.73 sq M predicted among non-blacks MDRD (S/P/Bld) [Vol rate/Area] Normal [facility] Comment on above: Result Comment: COMP REHENSIVE METABOLIC PANEL Performed By: #### 2 77152 #### [facility],[address] [place] [address] 77841 Globulin (S) [Mass/Vol] 2.7 g/dL Normal 1.5 - 3.8 [facility] Comment on above: Performed By: #### 2 46019 #### [facility],[address] [place] [address] 00891 Glucose [Mass/Vol] 105 mg/dL Normal 74 - [address] [facility] Comment on above: Performed By: #### 2 87600 #### [facility],[address] [place] [address] 49251 Potassium [Moles/Vol] 3.3 mmol/L Low 3.5 - 5.1 [facility] Comment on above: Performed By: #### 2 88765 #### [facility],[address] [place] [address] 56847 Protein [Mass/Vol] 7.0 g/dL Normal 6.4 - 8.[address] [facility] Comment on above: Performed By: #### 2 18149 #### [facility],[address] [place] [address] 57325 Sodium [Moles/Vol] 138 mmol/L Normal 136 - [address] [facility] Comment on above: Performed By: #### 2 27551 #### [facility],[address] [place] [address] 21222 Urea nitrogen [Mass/Vol] 10 mg/dL Normal 6 - 20 [facility] Comment on above: Performed By: #### 2 80880 #### [facility],[address] [place] [address] 71645 INFLUENZA VIRUS RAPID A/Desean 02-22-2019 INFLUENZA VIRUS RAPID A/B INFLUENZA A NEGATIVE INFLUENZA B NEGATIVE INTERNAL NEG QC PASS INTERNAL POS QC PASS EXTERNAL QC DONE? YES A NEGATIVE TEST RESULT DOES NOT EXCLUDE INFECTION WITH INFLUENZA A OR B. THEREFORE, THE RESULTS OBTAINED FROM THIS FLU TEST SHOULD BE USED IN CONJUCTION WITH CLINICAL FINDINGS TO MAKE AN ACCURATE DIAGNOSIS. A POSITIVE RESULT DOES NOT RULE OUT CO-INFECTIONS WITH OTHER PATHOGENS OR IDENTIFY ANY SPECIFIC INFLUENZA A VIRUS SUBTYPE.CO-INFECTION WITH INFLUENZA A AND B IS RARE. IT IS RECOMMENDED THAT DUAL POSITIVE RESULTS BE CONFIRMED BY VIRAL CULTURE OR AN FDA-CLEARED INFLUENZA A AND B MOLECULAR ASSAY. INDIVIDUALS WHO HAVE RECEIVED NASALLY ADMINISTERED INFLUENZA A VACCINE MAY TEST POSITIVE IN COMMERCIALLY AVAILABLE INFLUENZA RAPID DIAGNOSTIC TESTS FOR UP TO THREE DAYS. Normal [facility] Comment on above: Performed By: #### 2 06045 #### [place] [id number] TROPONINon 02-22-2019 Troponin I.cardiac [Mass/Vol] ng/mL Normal 0.00 - 0.05 [facility] Comment on above: Result Comment: Elev ated troponin (above the 99th percentile) usually indicates myocardial ischemia. Results must be interpreted within the clinical setting. 1.Non-ischemic pathology can also cause elevated troponin levels (e.g., acute pulmonary embolism, myocarditis, pericarditis, heart failure, intracranial injury, rhabdomyolisis, sepsis, shock and renal insufficiency). 2.Approximately 1% of healthy adults have elevated troponin levels. 3.Analytical false positive results rarely occur(due to multiple interferences such as heterophile antibodies). Performed By: #### 2 80058 #### [facility],[address] [place] [address] 62888 CBC + DIFFon 02-21-2019 Basophils (Bld) [#/Vol] 0.10 x10EE3/UL Normal 0.00 - 0.10 [facility] Comment on above: Performed By: #### 2 91766 #### [facility],[address] [place] [address] 39402 Basophils/100 WBC (Bld) 0.9 % Normal 0.0 - 2.0 [facility] Comment on above: Performed By: #### 2 53876 #### [facility],[address] [place], [place] [id number] CBC + DIFF Normal [facility] Comment on above: Result Comment: CBC- COMPLETE BLOOD COUNT Performed By: #### 2 66182 #### [facility],[address] [place] [address] Eosinophils (Bld) [#/Vol] 0.20 x10EE3/UL Normal 0.00 - 0.50 [facility] Comment on above: Performed By: #### 2 22405 #### [facility],[address] [place] [address] Eosinophils/100 WBC (Bld) 2.4 % Normal 0.0 - 7.0 [facility] Comment on above: Performed By: #### 2 03645 #### [place] [address] Erythrocyte distribution width (RBC) [Ratio] 13.3 % Normal 12.0 - 15.6 [facility] Comment on above: Performed By: #### 2 00521 #### [place] [address] Hematocrit (Bld) [Volume fraction] 43.9 % Normal 40.0 - 52.0 [facility] Comment on above: Performed By: #### 2 73400 #### [facility],[address] [place], [place] [id number] Hemoglobin (Bld) [Mass/Vol] 15.6 g/dL Normal 13.0 - 17.5 [facility] Comment on above: Performed By: #### 2 20878 #### [place] [id number] Lymphocytes (Bld) [#/Vol] 1.90 x10EE3/UL Normal 0.80 - 2.80 [facility] Comment on above: Performed By: #### 2 28436 #### [facility],[address] [place] [address] Lymphocytes/100 WBC (Bld) 18.6 % Low 20.0 - 45.0 [facility] Comment on above: Performed By: #### 2 72809 #### [facility],[address] [place] [address] MANUAL DIFF N/A Normal [facility] Comment on above: Performed By: #### 2 88861 #### [facility],[address] [place] [address] MCH (RBC) [Entitic mass] 33 pg Normal 27 - 33 [facility] Comment on above: Performed By: #### 2 32550 #### [place] [address] MCHC (RBC) [Mass/Vol] 36 X10 3 Normal 32 - 36 [facility] Comment on above: Performed By: #### 2 54488 #### [place] [address] MCV (RBC) [Entitic vol] 92 fL Normal 81 - 98 [facility] Comment on above: Performed By: #### 2 92213 #### [place] [address] Monocytes (Bld) [#/Vol] 1.10 x10EE3/UL High 0.20 - 1.00 [facility] Comment on above: Performed By: #### 2 11861 #### [facility],[address] [place], [place] [id number] MONOS % 10.6 % High 0.0 - 10.0 [facility] Comment on above: Performed By: #### 2 74018 #### [place] [id number] Morphology Kota (Bld) [Interp] N/A Normal [facility] Comment on above: Performed By: #### 2 83754 #### [place] [id number] Neutrophils (Bld) [#/Vol] 6.80 x10EE3/UL Normal 1.50 - 7.10 [facility] Comment on above: Performed By: #### 2 36750 #### [facility],[address] [place] [address] 59035 Neutrophils/100 WBC (Bld) 67.5 % Normal 46.0 - 76.0 [facility] Comment on above: Performed By: #### 2 13832 #### [facility],[address] [place] [address] 51337 Platelet mean volume (Bld) [Entitic vol] 8.2 fL Normal 6.4 - 10.5 [facility] Comment on above: Result Comment: AUTO MATED DIFFERENTIAL Performed By: #### 2 01795 #### [address] [address] Platelets (Bld) [#/Vol] 246 x10EE3/UL Normal 150 - 450 [facility] Comment on above: Performed By: #### 2 68315 #### [facility],[address] [place] [address] 81785 RBC (Bld) [#/Vol] 4.75 x 10EE6/UL Normal 4.50 - 6.00 [facility] Comment on above: Performed By: #### 2 15126 #### [facility],[address] [place] [address] 93900 WBC (Bld) [#/Vol] 10.1 x 10EE3/UL Normal 4.5 - 10.8 [facility] Comment on above: Performed By: #### 2 34441 #### [facility],[address] [place] [address] 27410 CHEST 1 VIEWon 02-21-2019 CHEST 1 VIEW [place] [address] Patient: MEG COLE Phone#: : 1960 Age: 58 Gender: M Pt. Type: ER Account: [id number] Location: 052 Ordering: LUIS FERNANDO BOYD Exam Date: 02/21/2019/21:28 Family Phys: HAZEL GONZALES Charge Code: [id number] Physician: [place] Order #: [id number] DLP Dose#: PROCEDURE: X-RAY CHEST 1 VIEW COMPARISON: None. INDICATIONS: Cough FINDINGS: LUNGS: Left lung base increased lung markings, may represent atelectasis versus phase of respiration. VASCULATURE: Normal. Unremarkable pulmonary vasculature. CARDIAC: Normal. No cardiac silhouette abnormality or cardiomegaly. MEDIASTINUM: Normal. No visible mass or adenopathy. PLEURA: Normal. No effusion or pleural thickening. BONES: Normal. No fracture or visible bony lesion. OTHER: Mediastinal surgical clips are present. Median sternotomy wires are present. CONCLUSION: 1. Atelectasis versus phase of respiration the left lung base. Dictated by: Tejinder Gibbons MD on 02/22/2019 at 21:41 Approved by: Tejinder Gibbons MD on 02/22/2019 at 21:[address] [facility] Encounters Encounter Date Encounter Type Care Provider Facility Start: 04-01-2024 End: 04-01-2024 ambulatory ROYAL MILANMONS DO~[id number] Facility:[facility] Start: 10-11-2019 End: 10-11-2019 Patient encounter procedure [facility] Start: 10-11-2019 End: 10-11-2019 Emergency department patient visit [facility] Start: 03-12-2019 End: 03-12-2019 Patient encounter procedure Karly Veronica Cortes Facility:[facility] Start: 02-21-2019 End: 02-22-2019 Emergency department patient visit [facility]IS [facility] Procedures Date Procedure Procedure Detail Performing Clinician Start: 10-11-2019 Urinalysis LUIS FERNANDO BARRERA Comment on above: Result Comment: URIN ALYSIS Performed By: #### 2 16632 #### [facility],[address] [place] [address] Payers Date Payer Category Payer Unknown 1960 Unknown [id number] 2.16.84 [id number] 1960 Unknown [id number] 2.16.84 [id number] 1960 Unknown [id number] 2.16.84 [id number] 1960 Unknown [id number] 2.16.84 [id number] 1960 Unknown [id number] 2.16.8 [id number] 1959 Medicare [id number] Unknown [id number] Summary Purpose Family History No Family History Records FoundNo Family History Records FoundNo Family History Records Found Advance Directives No Advanced Directives Records FoundNo Advanced Directives Records FoundNo Advanced Directives Records Found Additional Source Comments (unrecognized sect ion and content) No Status Records FoundNo Status Records FoundNo Status Records Found INFORMATION SOURCE (unrecogn ized section and content) DATE CREATED AUTHOR 03/20/2019 [facility] DATE CREATED AUTHOR AUTHOR'S ORGANIZ ATION 10/21/2019 [facility] DATE CREATED AUTHOR AUTHOR'S ORGANIZ ATION 04/03/2024 [facility] FOR RECORDS PERTAINING TO PATIENTS WHO ARE OR HAVE BEEN ENROLLED IN A CHEMICAL DEPENDENCY/SUBSTANCEABUSE PROGRAM, SOME INFORMATION MAY BE OMITTED. This clinical summary was aggregated from multiple sources. Caution should be exercised in using it in the provision of clinical care. This summary normalizes information from multiple sources, and as a consequence, information in this document may materially change the coding, format and clinical context of patient data. In addition, data may be omitted in some cases. CLINICAL DECISIONS SHOULD BE BASED ON THE PRIMARY CLINICAL RECORDS. [employer] provides no warranty or guarantee of the accuracy or completeness of information in this document.
[2024-08-26 10:12] LABS: AST(SGOT) 8 U/L (15-37); Alanine Aminotransfer ALT/SGPT 13 U/L (16-61); Albumin, Serum 3.7 g/dL (3.2-5.0); Alkaline Phosphatase 90 U/L (45-117); Anion Gap 5 (5-15); BUN 6 mg/dL (7-18); BUN/Creat Ratio 6.5 RATIO (10-20); Calcium,Total 9.3 mg/dL (8.5-10.1); Chloride 104 mmol/L (98-107); Cholesterol 231 mg/dL (200); Creatinine, Serum 0.92 mg/dL (0.70-1.30); EST Glomerular Filtration Rate 88 mL/min (>60); Est Glom Filt Rate - Afr Amer 107 mL/min (>60); Globulin 3.6 g/dL (2.2-4.2); Glucose 108 mg/dL (74-106); High Density Lipoprotein 35 mg/dL; PSA,Total- Diagnostic 1.77 ng/mL (0.0-4.0); Potassium 3.5 mmol/L (3.5-5.1); Protein, Total 7.3 g/dL (6.4-8.2); Sodium Level 137 mmol/L (136-145); Triglycerides 205 mg/dL; Very Low Density Lipoprotein 41 mg/dL (5-40)
== END 2024-08-26 23:59 | disposition home or self-care (01) ==
LOC: LAB 09:06
PROVIDERS: PCP Family Medicine; Referring Provider Family Medicine; Visit Provider Family Medicine
DX: Z00.00 Encounter for general adult medical examination without abnormal findings (principal); I25.10 Atherosclerotic heart disease of native coronary artery without angina pectoris; I10 Essential (primary) hypertension
CPT/HCPCS: 36415; 80053; 80061; 84153; 85025